=== PATIENT | female | born 1980 | race Caucasian/White ===

== ENCOUNTER 2020-01-16 04:41 | Day surgery (SDC) | payer OTHER ==
[2020-01-16 15:35] VITALS: BMI 27.7
[2020-01-16] MEDS ORDERED: VASOPRESSIN 20 UNITS/ML VIAL IV ONE (16:34)
[2020-01-16] MEDS ORDERED: IBUPROFEN 800 MG/8 ML IJ IVPB PRN (17:33)
[2020-01-16] MEDS ORDERED: INDOMETHACIN 25 MG CAPSULE PO ONE (17:33)
[2020-01-16] MEDS ORDERED: ACETAMINOPHEN 1000 MG/100 ML VIAL (NON FORMULARY) IVPB ONE (17:34)
[2020-01-16 23:55] VITALS: BP 104/70; PULSE 56; TEMP 98.7
== END 2020-01-16 22:40 | disposition home or self-care (01) ==
LOC: JASU-SURG 04:41 → J3W 21:49 → JASU-SURG 22:40
PROVIDERS: ATTEND Obstetrics & Gynecology Maternal & Fetal Medicine
PROC: 0UVC7ZZ Restriction of Cervix, Via Natural or Artificial Opening (ICD-10-PCS; principal; 2020-01-16 15:30)
DX: O34.31 Maternal care for cervical incompetence, first trimester (principal); Z3A.01 Less than 8 weeks gestation of pregnancy
CPT/HCPCS: 94760